=== PATIENT | male | born 2000 | race Caucasian/White ===

== ENCOUNTER → 2023-03-17 | Outpatient (CLI) | payer SELFPAY | LOC: M OUTALCOH 07:38 | PROVIDERS: ATTEND Psychiatry & Neurology Psychiatry | DX: F10.10 Alcohol abuse, uncomplicated (principal) ==

== ENCOUNTER 2023-04-27 16:00 | Outpatient (RCR) | payer OTHER, SELFPAY | END 2023-04-28 | LOC: M OUTALCOH 16:00 | PROVIDERS: ATTEND Psychiatry & Neurology Psychiatry | DX: F16.20 Hallucinogen dependence, uncomplicated (principal); F12.20 Cannabis dependence, uncomplicated; F17.200 Nicotine dependence, unspecified, uncomplicated ==

== ENCOUNTER → 2023-05-27 | Outpatient (RCR) | payer OTHER | LOC: M OUTALCOH 04-29 10:31 | PROVIDERS: ATTEND Psychiatry & Neurology Psychiatry | DX: F16.20 Hallucinogen dependence, uncomplicated (principal); F12.10 Cannabis abuse, uncomplicated; F17.200 Nicotine dependence, unspecified, uncomplicated ==

== ENCOUNTER 2023-06-23 13:42 | Outpatient (RCR) | payer OTHER | END 2023-06-27 | LOC: M OUTALCOH 13:42 | PROVIDERS: ATTEND Psychiatry & Neurology Psychiatry | DX: F16.20 Hallucinogen dependence, uncomplicated (principal); F12.10 Cannabis abuse, uncomplicated; F17.200 Nicotine dependence, unspecified, uncomplicated ==

== ENCOUNTER 2023-07-26 16:00 | Outpatient (RCR) | payer OTHER | END 2023-07-27 | LOC: M OUTALCOH 16:00 | PROVIDERS: ATTEND Psychiatry & Neurology Psychiatry | DX: F16.20 Hallucinogen dependence, uncomplicated (principal); F12.10 Cannabis abuse, uncomplicated; F17.200 Nicotine dependence, unspecified, uncomplicated ==

== ENCOUNTER 2023-08-19 10:59 | Outpatient (RCR) | payer OTHER | END 2023-08-27 | LOC: M OUTALCOH 10:59 | PROVIDERS: ATTEND Psychiatry & Neurology Psychiatry | DX: F16.20 Hallucinogen dependence, uncomplicated (principal); F12.10 Cannabis abuse, uncomplicated; F17.200 Nicotine dependence, unspecified, uncomplicated ==

== ENCOUNTER 2023-09-22 12:00 | Outpatient (RCR) | payer OTHER | END 2023-09-26 | LOC: M OUTALCOH 12:00 | PROVIDERS: ATTEND Psychiatry & Neurology Psychiatry | DX: F16.20 Hallucinogen dependence, uncomplicated (principal); F12.10 Cannabis abuse, uncomplicated; F17.200 Nicotine dependence, unspecified, uncomplicated ==

== ENCOUNTER 2023-10-07 11:03 | Outpatient (RCR) | payer OTHER | END 2023-10-27 | LOC: M OUTALCOH 11:03 | PROVIDERS: ATTEND Psychiatry & Neurology Psychiatry | DX: F16.20 Hallucinogen dependence, uncomplicated (principal); F12.10 Cannabis abuse, uncomplicated; F17.200 Nicotine dependence, unspecified, uncomplicated ==

== ENCOUNTER 2023-11-11 11:02 | Outpatient (RCR) | payer OTHER | END 2023-11-27 | LOC: M OUTALCOH 11:02 | PROVIDERS: ATTEND Psychiatry & Neurology Psychiatry | DX: F16.20 Hallucinogen dependence, uncomplicated (principal); F12.10 Cannabis abuse, uncomplicated; F17.200 Nicotine dependence, unspecified, uncomplicated ==

== ENCOUNTER → 2024-02-16 | Outpatient (CLI) | payer OTHER, SELFPAY | LOC: M OUTALCOH 08:14 | PROVIDERS: ATTEND Psychiatry & Neurology Psychiatry | DX: Z53.9 Procedure and treatment not carried out, unspecified reason (principal) ==

== ENCOUNTER → 2024-02-18 | Outpatient (CLI) | payer MEDICAID | LOC: M OUTALCOH 07:40 | PROVIDERS: ATTEND Psychiatry & Neurology Psychiatry | DX: F16.20 Hallucinogen dependence, uncomplicated (principal); F12.10 Cannabis abuse, uncomplicated; F17.200 Nicotine dependence, unspecified, uncomplicated ==

== ENCOUNTER → 2024-02-18 | Outpatient (CLI) | payer MEDICAID | LOC: M OUTALCOH 08:00 | PROVIDERS: ATTEND Psychiatry & Neurology Psychiatry | DX: F16.20 Hallucinogen dependence, uncomplicated (principal); F12.10 Cannabis abuse, uncomplicated; F17.200 Nicotine dependence, unspecified, uncomplicated ==

== ENCOUNTER 2024-03-27 08:00 | Outpatient (RCR) | payer MEDICAID | END 2024-03-28 | LOC: M OUTALCOH 08:00 | PROVIDERS: ATTEND Psychiatry & Neurology Psychiatry | DX: F15.20 Other stimulant dependence, uncomplicated (principal); F17.200 Nicotine dependence, unspecified, uncomplicated ==

== ENCOUNTER → 2024-04-28 | Outpatient (RCR) | payer MEDICAID, OTHER | LOC: M OUTALCOH 04-03 07:59 | PROVIDERS: ATTEND Psychiatry & Neurology Psychiatry | DX: F16.20 Hallucinogen dependence, uncomplicated (principal); F12.10 Cannabis abuse, uncomplicated; F17.200 Nicotine dependence, unspecified, uncomplicated ==

== ENCOUNTER → 2024-05-26 | Outpatient (RCR) | payer OTHER | LOC: M OUTALCOH 05-03 16:00 | PROVIDERS: ATTEND Psychiatry & Neurology Psychiatry | DX: F16.20 Hallucinogen dependence, uncomplicated (principal); F12.10 Cannabis abuse, uncomplicated; F17.200 Nicotine dependence, unspecified, uncomplicated ==

== ENCOUNTER 2024-06-02 15:00 | Outpatient (RCR) | payer OTHER | END 2024-06-26 | LOC: M OUTALCOH 15:00 | PROVIDERS: ATTEND Psychiatry & Neurology Psychiatry | DX: F16.20 Hallucinogen dependence, uncomplicated (principal); F12.10 Cannabis abuse, uncomplicated; F17.200 Nicotine dependence, unspecified, uncomplicated ==

== ENCOUNTER → 2024-10-27 | Outpatient (CLI) | payer OTHER | LOC: M WUC 12:08 | DX: R07.89 Other chest pain (principal) ==

== ENCOUNTER → 2025-01-15 | Outpatient (CLI) | payer OTHER ==
[2025-01-15 17:15] LABS: BASO # 0.0 10^3/uL (0.0-0.2); BASO % 0.5 % (0.0-1.0); EOS # 0.5 10^3/uL (0.0-0.5); EOS % 5.8 % (0.0-3.0); LYMPH # 1.7 10^3/uL (1.5-5.0); LYMPH % 20.0 % (24.0-44.0); MONO # 0.8 10^3/uL (0.0-0.8); MONO % 9.1 % (2.0-8.0); NEUTROPHILS # 5.4 10^3/uL (1.5-8.5); NEUTROPHILS % 64.4 % (36.0-66.0); PLATELET COUNT, AUTOMATED 246 10^3/uL (150-450)
[2025-01-15 17:30] LABS: BACTERIA, URINE AUTO NEGATIVE (NEGATIVE); MUCUS, URINE SMALL (NEGATIVE); RBC, URINE AUTO 0 /HPF (0-3); SQUAMOUS EPITHELIAL CELL UR AU 0 /HPF (0-6); WBC, URINE AUTO 2 /HPF (0-3)
[2025-01-15 17:42] LABS: ALT/SGPT 25 U/L (7.0-40); AST/SGOT 20 U/L (<34); CALCIUM LEVEL 9.4 MG/DL (8.5-10.1); CARBON DIOXIDE LEVEL 29 MMOL/L (20-31); CHLORIDE LEVEL 105 MMOL/L (98-107); CREATININE FOR GFR 0.99 MG/DL (0.70-1.30); GLOMERULAR FILTRATION RATE > 90.0 (>60); POTASSIUM SERUM 3.8 MMOL/L (3.5-5.1); SODIUM LEVEL 144 MMOL/L (136-145)
[2025-01-15 18:17] LABS: HEPATITIS C VIRUS ABY INDEX 0.07 INDEX (<0.8)
== END ==
LOC: M PLALAB 14:50
DX: Z00.8 Encounter for other general examination (principal)